=== PATIENT | female | born 1990 | race Hispanic/Latino ===

== ENCOUNTER 2017-11-06 14:36 | Emergency (ER) | payer OTHER, SELFPAY ==
[2017-11-06 15:41] LABS: Bilirubin Negative (Negative); Blood, Urine Moderate (Negative); Glucose, Urine (Dipstick) Negative (Negative); Ketone, Urine Negative (Negative); Nitrite Negative (Negative); Protein, Urine (Dipstick) Negative (Neg-Trace); Urobilinogen 0.2 mg/dL (0.2-1.0)
[2017-11-06 15:43] LABS: Bacteria/HPF 1+ HPF (None Seen); Hyaline Casts/LPF 7-10 HYALINE CAST LPF (0-3 Hyaline)
[2017-11-06 15:52] LABS: Yeast-All Forms None Seen HPF (None Seen)
[2017-11-06 17:53] LABS: #Eosinphils 0.1 thou/uL (0.0-0.7); #Lymphocytes 2.6 thou/uL (1.20-3.40); #Monocytes 0.8 thou/uL (0.11-0.59); #Neutrophils 6.3 thou/uL (1.40-6.50); %Basophils 0.3 % (0.0-1.0); %Eosinophils 0.8 % (0.0-10.0); %Lymphocytes 26.4 % (21.0-51.0); %Monocytes 7.8 % (0.0-10.0); Hematocrit 38.9 % (36.0-47.0); Red Blood Cell (RBC) Count 4.51 mill/uL (4.20-5.40); White Blood Cell (WBC) Count 9.8 thou/uL (4.8-10.8)
[2017-11-06] MEDS ORDERED: cefTRIAXone\\ROCEPHIN 1 GM, Syringe 0.4 ML in Sterile Water 9.6 ML SLOW IVP SCH (18:45)
--- NOTE | 2017-11-06 22:45 | ULT ---
HISTORY: Right sided flank pain. Burning while urinating. The patient was diagnosed with urinary tract infecti on today. Patient has previous history of uterine fibroids. Multiple longitudinal and transverse images of the pelvis is obtained using a multihertz curvilinear transabdominal as well as multihertz endovaginal transducers. Real time, color flow and spectral wave form doppler analysis used to evaluate the pelvis. The uterus is bulky measuring 9.7 x 6.4 x 7.2 cm. Multiple uterine fibroids seen. The largest measure s 3.1 x 2.3 x 2.5 cm. There is a gestational sac and yolk sac seen. [place]-rump length is also visuali zed. [place]-rump measures 4 mm giving a gestational age of 6 weeks, 1 day. Cardiac activity is confirm ed measuring 131 beats per minute. The gestational sac measures 1.7 cm giving a gestational age of 6 weeks, 4 days. This has overall estimated gestational age of 6 weeks, 3 days with an estimated date o f delivery of 07/09/17. Both ovaries are visualized and demonstrate good blood flow. Right ovary measures 2.8 x 1.4 x 1.9 cm while the left ovary measures 3.1 x 2.0 x 2.5 cm. IMPRESSION: Uterine fibroids and viable IUP visualized. POS: [facility]
== END 2017-11-06 21:07 | disposition home or self-care (01) ==
LOC: ERS 14:36
DX: O23.41 Unspecified infection of urinary tract in pregnancy, first trimester (principal); O99.341 Other mental disorders complicating pregnancy, first trimester; F41.9 Anxiety disorder, unspecified; Z3A.01 Less than 8 weeks gestation of pregnancy
CPT/HCPCS: 36415; 76856; 81003; 81015; 81025; 84702; 85025; 96374; A4216; J0696

== ENCOUNTER 2017-11-20 07:23 | Emergency (ER) | payer SELFPAY ==
--- NOTE | 2017-11-20 09:05 | ULT ---
PELVIC ULTRASOUND: Comparison: None. History: Spotting in a female. Technique: Multiplanar grayscale and color doppler images were obtained in a transvaginal pelvic ultr asound. FINDINGS: There is an intrauterine . A yolk sac and pole are seen. [place] rump length of the feta l pole is 2.16 cm with estimated gestational age of 8 weeks 6 days. There are isoechoic to hypoechoic regions in the uterus which may represent uterine fibroids. No free fluid is seen in the pelvis. Neither ovary could be visualized. IMPRESSION: 1. Single live intrauterine with estimated age of 8 weeks 6 days. 2. Likely uterine fibroids. POS: [facility]
== END 2017-11-20 09:16 | disposition home or self-care (01) ==
LOC: ERS 07:23
DX: O20.0 Threatened abortion (principal); O99.341 Other mental disorders complicating pregnancy, first trimester; F41.9 Anxiety disorder, unspecified; Z3A.01 Less than 8 weeks gestation of pregnancy
CPT/HCPCS: 36415; 76856; 84702; 86900; 86901; 87480; 87491; 87510; 87591; 87660

== ENCOUNTER 2017-11-22 14:51 | Emergency (ER) | payer MEDICAID, SELFPAY ==
[2017-11-22] MEDS ORDERED: diphenhydrAMINE 50 MG/ML VIAL ONE (16:13)
[2017-11-22] MEDS ORDERED: Metoclopramide HCl 10 MG/2 ML VIAL ONE (16:13)
[2017-11-22 16:37] LABS: Bilirubin Negative (Negative); Blood, Urine Moderate (Negative); Clarity CLOUDY (Clear); Glucose, Urine (Dipstick) Negative (Negative); Leukocyte Moderate (Negative); Nitrite Negative (Negative); Protein, Urine (Dipstick) Trace mg/dL (Neg-Trace); Specific Gravity, Urine 1.026 (1.002-1.036)
[2017-11-22 16:39] LABS: Bacteria/HPF 1+ HPF (None Seen); Pathc Cast-AUWi Flag 1.76 (0-2.49); WBC/HPF 21-50 HPF (0-3)
[2017-11-22 16:57] LABS: Hyaline Casts/LPF 0-3 HYALINE CAST LPF (0-3 Hyaline)
[2017-11-22 17:12] LABS: #Lymphocytes 1.1 thou/uL (1.20-3.40); #Monocytes 0.7 thou/uL (0.11-0.59); #Neutrophils 6.4 thou/uL (1.40-6.50); %Basophils 0.1 % (0.0-1.0); %Eosinophils 0.1 % (0.0-10.0); %Monocytes 8.6 % (0.0-10.0); %Neutrophils 78.2 % (42.0-75.0); Hemoglobin 12.6 g/dL (12.0-16.0); Mean Corpuscular Hemoglobin 28.5 pg (27.0-31.0); Mean Corpuscular Volume 86.1 fl (81.0-99.0); Mean Platelet Volume 6.9 fL (7.4-10.4); Platelet Count 233 thou/uL (130-400); RBC Distribution Width 13.3 % (11.5-14.5); Red Blood Cell (RBC) Count 4.41 mill/uL (4.20-5.40); White Blood Cell (WBC) Count 8.2 thou/uL (4.8-10.8)
[2017-11-22 17:33] LABS: Anion Gap 13 mmol/L (10-20); BUN (Urea Nitrogen) 7 mg/dL (7.0-18.7); Calc. Creatinine Clearance 0 mL/min (70-130); Calcium 9.8 mg/dL (7.8-10.44); Carbon Dioxide 25 mmol/L (22-29); Chloride 101 mmol/L (98-107); Estimated GFR-MDRD Greater than 90; Glucose 86 mg/dL (70-105); Potassium 4.2 mmol/L (3.5-5.1); Sodium 135 mmol/L (136-145)
--- NOTE | 2017-11-22 18:06 | ULT ---
PELVIC ULTRASOUND: 11/22/17 HISTORY: 9 weeks with vaginal bleeding. Real time images of the pelvis shows a single viable intrauterine . heart rate is 145 beats per minute. [place] to rump length measurements are 2.3 cm corresponding to a gestational age of 9 weeks, 0 days. There is some areas of altered echogenicity along the uterine wall, most likely fib roids, largest is 1.9 cm. Neither the right or left adnexa is visualized. IMPRESSION: 1. Single viable intrauterine . [place] to rump length measurements correspond to gestati onal age of 9 weeks, 0 days. 2. Uterine fibroids. 3. No evidence of subchorionic hemorrhage. POS: [facility]
== END 2017-11-22 18:00 | disposition home or self-care (01) ==
LOC: ERS 14:51
DX: O99.511 Diseases of the respiratory system complicating pregnancy, first trimester (principal); J11.1 Influenza due to unidentified influenza virus with other respiratory manifestations; O99.341 Other mental disorders complicating pregnancy, first trimester; F41.9 Anxiety disorder, unspecified; Z3A.09 9 weeks gestation of pregnancy
CPT/HCPCS: 36415; 76856; 80048; 81003; 81015; 84702; 85025; 87086; 87804; 96365; 96375; J1200; J2765

== ENCOUNTER 2018-05-05 23:12 | Day surgery (SDC) | payer MEDICAID, OTHER ==
[2018-05-05 23:58] VITALS: BP 96/58; TEMP 98.4
--- NOTE | 2018-05-06 01:39 | PDOC.EVN ---
Event Note - Event Note Event Note: 27 y/o at 32w4d presented after a fall from rolling her ankle at approximately 5:00. She denied any VB, ctx, LOF, or other OB complaints. +FM. Primary complaint was of foot pain from fall. The patient was in the restroom when I went to evaluate the patient. I was called to the ED and then OR for a ruptured ectopic . Since she had no ob complaints and her foot was becoming more painful and swollen, she was discharged to the ED for evaluation of her foot injury after an NST to prove well-being. monitorins, mod variability, + accels, no decels [place]: no contractions Please see the ED physician note for evaluation of maternal injury.
== END 2018-05-06 00:45 | disposition short-term general hospital (02) ==
LOC: L&D/OP 23:12
PROVIDERS: ATTEND Obstetrics & Gynecology
DX: O99.89 Other specified diseases and conditions complicating pregnancy, childbirth and the puerperium (principal); M79.671 Pain in right foot; Z3A.32 32 weeks gestation of pregnancy; Z79.899 Other long term (current) drug therapy; W19.XXXA Unspecified fall, initial encounter
CPT/HCPCS: 99282

== ENCOUNTER 2018-05-06 00:56 | Emergency (ER) | payer MEDICAID, OTHER ==
[2018-05-06] MEDS ORDERED: Acetaminophen 500 MG TAB ONE (01:24)
--- NOTE | 2018-05-06 07:56 | RAD ---
RIGHT ANKLE 3 VIEWS: Date: 05/06/18 HISTORY: Fall, right ankle pain and swelling. FINDINGS: The ankle mortise is maintained. There is a tiny bony density inferior to the lateral malleolus suspi cious for an age indeterminate avulsion fracture. Soft tissue swelling is present. Report called over telephone to ER physician, Dr. Jc, at [id number] hours (at time of final interpreta tion). CODE CR. POS: [facility]
== END 2018-05-06 02:05 | disposition home or self-care (01) ==
LOC: ERS 00:56
DX: O99.89 Other specified diseases and conditions complicating pregnancy, childbirth and the puerperium (principal); M25.571 Pain in right ankle and joints of right foot; Z3A.32 32 weeks gestation of pregnancy
CPT/HCPCS: 99282

== ENCOUNTER 2018-06-02 11:26 | Day surgery (SDC) | payer OTHER ==
[2018-06-02 12:09] VITALS: BMI 43.0
[2018-06-02 12:10] VITALS: BP 107/66; TEMP 98.2
--- NOTE | 2018-06-02 19:19 | PRG ---
DATE OF SERVICE: 06/02/2018 OB ER ENCOUNTER PRIMARY INTERLOCKING AND SIGNAL MECHANIC: Dr. Sulma Brambila. CHIEF COMPLAINT: Abdominal pain and vaginal bleeding. HISTORY OF PRESENT ILLNESS: The patient is a 27-year-old G7, P4 female with an intrauterine pregnanc y at 36 weeks and 4 days, who presented to labor and delivery today after experiencing onset of pain and bleeding at approximately 11:00. The patient reports she is getting out of a car to go to the [place] when she noticed abdominal pain and she now noticed vaginal bleeding that had started. T he patient reports that she had intercourse last night. She denies any trauma or fall, any illness o r fever. She feels pain in her back, as well as her lower pelvis. She reports that the pain comes a nd goes; however, more concerning to her is the vaginal bleeding. The patient reports that her bleed ing was started more like a menstrual flow and has since been slowing down. The patient does have a history of 4 previous C-sections. The patient denies any leakage of fluid other than the bleeding sh e has experienced. PAST MEDICAL HISTORY: Depression, anxiety, anemia, heartburn. PAST SURGICAL HISTORY: Four previous C-sections and a cholecystectomy. MEDICATIONS: Iron and vitamins. ALLERGIES: No known drug allergies. SOCIAL HISTORY: Denies drug, alcohol or tobacco use. OB LABS: Blood type is O positive, antibody screen is negative. She is rubella immune. RPR is nonr eactive. Hepatitis B surface antigen is nonreactive, HIV is nonreactive. One hour Glucola is 163. Her 3-hour test was 87, 133, 131 and then 96. REVIEW OF SYSTEMS: Per HPI. PHYSICAL EXAMINATION: VITAL SIGNS: Blood pressure 106/58, heart rate 76, respiratory rate 18, temperature 98.4. GENERAL: The patient appears to be in no acute distress. She is alert and oriented, cooperative and pleasant to interact with. HEAD: Normocephalic, atraumatic. LUNGS: Clear to auscultation bilaterally. HEART: Regular rate and rhythm. ABDOMEN: Gravid. She has tenderness along the right side, particular deviation of the uterus and so me tenderness in her lower pelvic area. EXTREMITIES: Nontender, nonedematous. PELVIC: Vulva is without masses, lesions or erythema. She does have some bloody staining on her lab ia and upper inner thighs. On speculum exam, the patient has a very small amount of dark red blood i n the vaginal vault, removed with one [employer] swab. Cervix is visibly closed. There is a very minima l amount of dark mucousy blood coming from the os. On cervical exam, cervix is very soft; however, i s closed and thick. Of note, the patient had very tender ligament muscular structures along the vagi nal wall making the exam difficult for her. heart tracing performed for vaginal bleeding and abdominal pain. Baseline is noted to be in th e 140s with moderate long-term variability, positive accelerations, no decelerations. Tocometer show ed only isolated contractions. The patient was asked to william when she felt these abdominal pains. E lis in her evaluation, the patient was marking that every 6 to 10 minutes, which quickly spaced ou t by the end of her evaluation, the patient reports that she was feeling much better and has only an isolated william for contraction or abdominal pain. Bedside ultrasound was performed and the patient wa s noted to have adequate fluid though not objectively measured and noted to have a posterior and late ral placenta that appeared to be low in the pelvis. Due to habitus, it was difficult to see or measu re how close it was to the cervical os. ASSESSMENT AND PLAN: The patient is a 27-year-old G7, P4 female with an intrauterine at 36 weeks and 4 days and a history of 4 prior C-sections, who presented today after having intercourse l ast night with abdominal pain and vaginal bleeding. The patient was observed for a total of 4 hours given the extent of her bleeding early on. Over these 4 hours, the abdominal pains dissipated and so did the vaginal bleeding. Fetus continued to have a category tracing throughout the entire time. A t the end of evaluation, the patient was comfortable going home. She does have an appointment tomorr ow with Dr. Brambila. The patient was given labor precautions.
== END 2018-06-02 16:50 | disposition home or self-care (01) ==
LOC: L&D/OP 11:26
PROVIDERS: ATTEND Obstetrics & Gynecology
DX: O99.89 Other specified diseases and conditions complicating pregnancy, childbirth and the puerperium (principal); R10.9 Unspecified abdominal pain; R10.2 Pelvic and perineal pain; M54.9 Dorsalgia, unspecified; O46.93 Antepartum hemorrhage, unspecified, third trimester; O99.013 Anemia complicating pregnancy, third trimester; D64.9 Anemia, unspecified; O99.343 Other mental disorders complicating pregnancy, third trimester; F32.9 Major depressive disorder, single episode, unspecified; F41.9 Anxiety disorder, unspecified; Z98.891 History of uterine scar from previous surgery; Z79.899 Other long term (current) drug therapy; Z3A.36 36 weeks gestation of pregnancy
CPT/HCPCS: 76815; 99283